=== PATIENT | female | born 1995 | race Hispanic/Latino ===

== ENCOUNTER 2020-02-23 05:49 | Day surgery (SDC) | payer BC ==
[2020-02-17 11:52] LABS: BASOPHILS % (AUTO) 0.7 % (0.0-5.0); EOSINOPHILS % (AUTO) 5.5 % (0.0-8.0); HEMATOCRIT 40.2 % (36-48); LYMPHOCYTES % (AUTO) 21.2 % (21.0-51.0); MEAN CORPUSCULAR HEMOGLOBIN 30.5 pg (27.0-33.0); MEAN CORPUSCULAR HGB CONC 33.6 g/dL (32.0-36.0); MONOCYTES % (AUTO) 7.1 % (3.0-13.0); NEUTROPHILS % (AUTO) 65.1 % (40.0-77.0); PLATELET COUNT (AUTO) 305 K/uL (130-400); RED BLOOD CELL COUNT(AUTO) 4.42 MIL/uL (4.00-5.50); RED CELL DISTRIBUTION WIDTH 11.9 % (11.0-15.5); WHITE BLOOD COUNT (AUTO) 8.1 K/uL (4.8-10.8)
[2020-02-17 12:02] LABS: ALBUMIN 3.9 g/dL (3.5-5.0); BILIRUBIN,TOTAL 0.3 mg/dL (0.2-1.0); CREATININE 0.6 mg/dL (0.5-1.5); POTASSIUM 4.7 mmol/L (3.5-5.1)
[2020-02-22 14:33] VITALS: BP 122/73
[2020-02-23] VITALS (23 sets, daily range): BP systolic 106–154; BP diastolic 67–99
[~2020-02-23] VITALS: Ht 149.9 cm; Wt 63.2 kg
[~2020-02-23 05:49] MED LIST: CETI-89 PO; LINA290C PO
[2020-02-23] MEDS ORDERED: LIDOCAINE HCL/EPINEPHRINE 50 ML VIAL IJ SCH (08:00)
[2020-02-23] MEDS ORDERED: LACTATED RINGERS 1000ML 1,000 ML IV ONE (08:27)
[2020-02-23] MEDS: CEFAZOLIN SODIUM 1 GM VIAL ONE ×2 (08:43→09:15)
[2020-02-23] MEDS ORDERED: BUPIVACAINE/EPI/PF 0.5% 30ML VIAL IJ ONE (08:52)
[2020-02-23] MEDS ORDERED: IOHEXOL-350 50ML VIAL IV ONE (08:55)
[2020-02-23] MEDS ORDERED: LIDOCAINE PF 2% 5ML ABBOJECT ONE (09:01)
[2020-02-23] MEDS ORDERED: DEXAMETHASONE SOD PHOSPHATE 10MG/ML 1ML VIAL ONE (09:01)
[2020-02-23] MEDS ORDERED: MIDAZOLAM HCL 1 MG/ML 2ML VIAL ONE (09:01)
[2020-02-23] MEDS ORDERED: ONDANSETRON HCL 4 MG/2 ML VIAL ONE (09:02)
[2020-02-23] MEDS ORDERED: FENTANYL CITRATE PF 50 MCG/1 ML 2ML VIAL ONE (09:02)
[2020-02-23] MEDS ORDERED: ROCURONIUM 10MG/1ML SYR 10 MG/ML ML ONE (09:02)
[2020-02-23] MEDS ORDERED: PROPOFOL 10 MG/ML 20ML VIAL IV ONE (09:02)
[2020-02-23] MEDS ORDERED: MEPERIDINE-PF 25 MG/ML SYG ONE ×3 (10:42→11:34)
[2020-02-23] MEDS ORDERED: KETOROLAC TROMETHAMINE 30MG/ML ONE (11:26)
--- NOTE | 2020-02-23 12:55 | NUR ---
DISCHARGE ORAL AND WRITTEN DISCHARGE INSTRUCTIONS GIVEN TO PT AND PTS FATHER ALONG WITH PRESCRIPTION. NO OTHER QUESTIONS AT THIS TIME.
== END 2020-02-23 13:00 | disposition home or self-care (01) ==
LOC: DAH 05:49
PROVIDERS: ATTEND Surgery
DX: K80.10 Calculus of gallbladder with chronic cholecystitis without obstruction (principal); Z79.899 Other long term (current) drug therapy; Z20.828 Contact with and (suspected) exposure to other viral communicable diseases
CPT/HCPCS: 36415; 47563; 74300; 80053; 84703; 85025; A4215 ×2; A4221; A4222; A4223; A4600; A4649 ×3; A4657; A4663; C1758; C1769 ×4; C9803; G0168; J0690; J1100; J1885; J2001; J2175 ×3; J2250; J2405; J2704; J3010; J7120 ×2; Q9967; U0003; 93005; J3490